=== PATIENT | male | born 1995 | race American Indian/Alaskan Native ===

== ENCOUNTER 2021-08-08 08:37 | Emergency (ER) | payer SELFPAY ==
[2021-08-08 08:48] VITALS: BP 99/55
--- NOTE | 2021-08-08 09:01 | Emergency Department Report ---
ED Dysuria HPI - HPI Chief Complaint: Urogenital-Male Stated Complaint: POSS STD Time Seen by Provider: 08/08/21 08:44 Duration: 2 Days Location of Discomfort: Urethra (dysuria) Severity: Mild Symptoms: Dysuria: No, Frequency: No, Suprapubic Pain: No, Flank Pain: No, Fever: No, Hematuria: No, Abdominal Pain: No, Previous UTI's: No Other History: Patient is a 26-year-old male that comes into the emergency room room with penile discharge x2 days. He denies testicular pain. He is having unprotected sex with one female ED Review of Systems ROS: Stated complaint: POSS STD Other details as noted in HPI Comment: All other systems reviewed and negative ED Past Medical Hx - Past Medical History Previous Medical History?: No - Surgical History Past Surgical History?: No - Family History Family history: no significant - Social History Smoking Status: Never Smoker Substance Use Type: Alcohol - Medications Home Medications: Home Medications Medication Instructions Recorded Confirmed Last Taken Type Azithromycin [Zithromax Z-ALLYSON] 1,000 mg PO ONCE #4 tablet 08/08/21 Unknown Rx metroNIDAZOLE [Flagyl] 2,000 mg PO ONCE #4 tab 08/08/21 Unknown Rx Dysuria Exam - Exam General: Vital signs noted. No distress. Alert and acting appropriately. Exam: Yes Moist Mucous Membranes, No CVA Tenderness, No Abdominal Tenderness, No Rigidity or Guarding ED Course Vital Signs 08/08/21 08:47 Temperature 97.7 F Pulse Rate 67 Respiratory 16 Rate Blood Pressure 99/55 O2 Sat by Pulse 97 Oximetry ED Medical Decision Making - Medical Decision Making UA has been sent. Vital Signs 08/08/21 08:47 Temperature 97.7 F Pulse Rate 67 Respiratory 16 Rate Blood Pressure 99/55 O2 Sat by Pulse 97 Oximetry Treating empirically with Rocephin IM in the ER. Will discharge with Flagyl and Azo. Patient counseled on safe sex Patient discharged home with discharge plan of care including medications, diet, activity and follow-up. He verbalizes understanding Critical care attestation.: If time is entered above; I have spent that time in minutes in the direct care of this critically ill patient, excluding procedure time. ED Disposition Clinical Impression: Concern about STD in male without diagnosis Disposition: 01 HOME / SELF CARE / HOMELESS Is pt being admited?: No Does the pt Need Aspirin: No Condition: Stable Additional Instructions: Safe sex Go to the pharmacy now and take all the medications that I have given you at 1 time Stay well-hydrated with water Prescriptions: metroNIDAZOLE [Flagyl] 2,000 mg PO ONCE #4 tab Azithromycin [Zithromax Z-ALLYSON] 1,000 mg PO ONCE #4 tablet Referrals: CELESTINO ASKEW MD [Staff Physician] - 3-5 Days Time of Disposition: 09:00
[2021-08-08] MEDS: LIDOCAINE-MPF (1%) 10 MG/1 ML VIAL 5 ML INFILTRATI ONE (09:17)
[2021-08-08 10:10] LABS: Bacteria,Urine 1+ /HPF (Negative); Bilirubin,Urine NEG (Negative); Blood,Urine NEG (Negative); Color,Urine Yellow (Yellow); Mucus,Urine 2+ /HPF
[2021-08-08 10:14] LABS: WBC,Urine > 182.0 /HPF (0.0-6.0)
== END 2021-08-08 09:22 | disposition home or self-care (01) ==
LOC: ED 08:37
DX: Z20.2 Contact with and (suspected) exposure to infections with a predominantly sexual mode of transmission (principal); F10.20 Alcohol dependence, uncomplicated
CPT/HCPCS: 81001; 96372; 99283; J0696; J3490